=== PATIENT | female | born 1965 | race Caucasian/White ===

== ENCOUNTER 2017-06-10 11:09 | Emergency (ER) | payer OTHER ==
--- NOTE | 2017-06-10 12:34 | RAD REPORT ---
EXAM DESCRIPTION: RAD - Chest Pa And Lat (2 Views) - 06/10/2017 12:23 pm CLINICAL HISTORY: Fever and cough COMPARISON: None. TECHNIQUE: PA and lateral views of the chest were obtained. FINDINGS: The lungs are hyperexpanded compatible with COPD. The heart is upper limit of normal in si ze. No fracture or aggressive bony process. IMPRESSION: COPD without acute process identified.
--- NOTE | 2017-06-10 13:10 | ER ---
Nurse's Notes [facility] Name: Piper Mai Age: 51 yrs Sex: Female : 1965 Arrival Date: 06/10/2017 Time: 11:11 Bed 11 Private MD: Diagnosis: Chronic obstructive pulmonary disease, unspecified;Cough Presentation: 06/10 11:29 Presenting complaint: Patient states: body aches and productive cough with green sputum ss x 3 days. Transition of care: patient was not received from another setting of care. Onset of symptoms was June 07, 2017. Care prior to arrival: None. 11:29 Method Of Arrival: Ambulatory ss 11:29 Acuity: GALILEO 4 ss Historical: - Allergies: : No Known Allergies; ss - Home Meds: : None [Active]; ss - PMHx: : None; ss - PSHx: :31 hip repair; back sx; Cholecystectomy; Appendectomy; Hysterectomy; ss - Immunization history:: Adult Immunizations up to date. - Social history:: Smoking status: Patient uses tobacco products, smokes one-half pack cigarettes per day. Screenin:41 Abuse screen: Denies threats or abuse. Denies injuries from another. Nutritional ss screening: No deficits noted. Tuberculosis screening: No symptoms or risk factors identified. Never had TB. Fall Risk None identified. Assessment: 11:35 General: Appears uncomfortable, Behavior is calm, cooperative, Reports feeling ill for ss 2-3 days, Denies fever. Pain: Complains of pain in general body aches Pain currently is 8 out of 10 on a pain scale. Quality of pain is described as aching, Pain began 3 days ago Is continuous. Neuro: Level of Consciousness is awake, alert, obeys commands. Cardiovascular: Capillary refill < 3 seconds is brisk in bilateral fingers. Respiratory: Airway is patent Respiratory effort is even, unlabored, Respiratory pattern is regular, symmetrical. Respiratory: Reports cough that is productive, x 3 days. Green sputum. GI: Patient currently denies abdominal pain, diarrhea, nausea, vomiting. Derm: Skin is intact, is healthy with good turgor, Skin is dry, Skin is pink, warm \T\ dry. normal. Musculoskeletal: Circulation, motion, and sensation intact. Range of motion: intact in all extremities, Swelling absent. 12:41 Reassessment: Patient appears in no apparent distress at this time. Patient and/or ss family updated on plan of care and expected duration. Pain level reassessed. Patient is alert, oriented x 3, equal unlabored respirations, skin warm/dry/pink. awaiting flu test results. ammonia refrigeration technician reports that it will be an additional 5-6 minutes. Vital Signs: 11:31 BP 109 / 79; Pulse 85; Resp 16; Temp 98.0(O); Pulse Ox 97% on R/A; Weight 78.02 kg; ss Height 5 ft. 7 in. (170.18 cm); Pain 8/10; 11:31 Body Mass Index 26.94 (78.02 kg, 170.18 cm) ED Course: 11:11 Patient arrived in ED. as 11:30 Triage completed. ss 11:30 [facility]autista [facility]C [facility] kb 11:30 Yasmany Bojorquez MD is Attending Physician. kb 11:31 Arm band placed on right wrist. ss 12:16 Patient moved to radiology via wheelchair. 1 12:21 X-ray completed. Patient tolerated procedure well. Patient moved back from radiology. 1 12:22 Chest Pa And Lat (2 Views) XRAY In Process Unspecified. EDMS 12:41 Yoselin Park, SHAAN is Primary Nurse. ss 12:41 Patient has correct armband on for positive identification. Call light in reach. ss 13:15 No provider procedures requiring assistance completed. Patient did not have IV access ss during this emergency room visit. Administered Medications: No medications were administered Outcome: 13:08 Discharge ordered by MD. kb 13:15 Discharged to home ambulatory, with family. ss 13:15 Condition: good 13:15 Discharge instructions given to patient, family, Instructed on discharge instructions, follow up and referral plans. medication usage, Demonstrated understanding of instructions, follow-up care, medications, Prescriptions given X 1. 13:15 Patient left the ED. Signatures: Dispatcher [employer] EDMS Florina Bautista FNP-C FNP-Julisa Gracia 1 Samira Berry as Yoselin Park, RN RN
--- NOTE | 2017-06-10 13:10 | EDPHYS ---
Physician Documentation [facility] Name: Piper Mai Age: 51 yrs Sex: Female : 1965 Arrival Date: 06/10/2017 Time: 11:11 Bed 11 Private MD: ED Physician Yasmany Bojorquez HPI: 06/10 13:06 This 51 yrs old Female presents to ER via Ambulatory with complaints of Flu kb Symptoms. 13:06 The patient or guardian reports cough, that is intermittent, described as mild, kb described as moderate, with no sputum. Onset: The symptoms/episode began/occurred 3 day(s) ago. Severity of symptoms: At their worst the symptoms were mild, moderate, in the emergency department the symptoms are unchanged. Modifying factors: The symptoms are alleviated by nothing, the symptoms are aggravated by nothing. Associated signs and symptoms: Pertinent positives: fever, Pertinent negatives: chest pain, diarrhea, ear ache, nausea, rhinorrhea, sore throat, vomiting. The patient has not experienced similar symptoms in the past. The patient has not recently seen a physician. Historical: - Allergies: 11: No Known Allergies; ss - Home Meds: : None [Active]; ss - PMHx: : None; ss - PSHx: 11:31 hip repair; back sx; Cholecystectomy; Appendectomy; Hysterectomy; ss - Immunization history:: Adult Immunizations up to date. - Social history:: Smoking status: Patient uses tobacco products, smokes one-half pack cigarettes per day. ROS: 13:05 ENT: Negative for injury, pain, and discharge, Neck: Negative for injury, pain, and kb swelling, Cardiovascular: Negative for chest pain, palpitations, and edema, Abdomen/GI: Negative for abdominal pain, nausea, vomiting, diarrhea, and constipation, Back: Negative for injury and pain, : Negative for injury, bleeding, discharge, and swelling, MS/Extremity: Negative for injury and deformity, Skin: Negative for injury, rash, and discoloration, Neuro: Negative for headache, weakness, numbness, tingling, and seizure. 13:05 Constitutional: Positive for fever, Negative for body aches, chills, fatigue, malaise, poor PO intake, weight loss. 13:05 Respiratory: Positive for cough, with no reported sputum, Negative for dyspnea on exertion, hemoptysis, orthopnea, pleurisy, shortness of breath, sputum production, wheezing. Exam: 13:05 Constitutional: This is a well developed, well nourished patient who is awake, alert, kb and in no acute distress. Head/Face: Normocephalic, atraumatic. ENT: Nares patent. No nasal discharge, no septal abnormalities noted. Tympanic membranes are normal and external auditory canals are clear. Oropharynx with no redness, swelling, or masses, exudates, or evidence of obstruction, uvula midline. Mucous membranes moist. Neck: Trachea midline, no thyromegaly or masses palpated, and no cervical lymphadenopathy. Supple, full range of motion without nuchal rigidity, or vertebral point tenderness. No Meningismus. Chest/axilla: Normal chest wall appearance and motion. Nontender with no deformity. No lesions are appreciated. Cardiovascular: Regular rate and rhythm with a normal S1 and S2. No gallops, murmurs, or rubs. Normal PMI, no JVD. No pulse deficits. Respiratory: Lungs have equal breath sounds bilaterally, clear to auscultation and percussion. No rales, rhonchi or wheezes noted. No increased work of breathing, no retractions or nasal flaring. Abdomen/GI: Soft, non-tender, with normal bowel sounds. No distension or tympany. No guarding or rebound. No evidence of tenderness throughout. Skin: Warm, dry with normal turgor. Normal color with no rashes, no lesions, and no evidence of cellulitis. MS/ Extremity: Pulses equal, no cyanosis. Neurovascular intact. Full, normal range of motion. Neuro: Awake and alert, GCS 15, oriented to person, place, time, and situation. Cranial nerves II-XII grossly intact. Motor strength 5/5 in all extremities. Sensory grossly intact. Cerebellar exam normal. Normal gait. Vital Signs: 11:31 BP 109 / 79; Pulse 85; Resp 16; Temp 98.0(O); Pulse Ox 97% on R/A; Weight 78.02 kg; ss Height 5 ft. 7 in. (170.18 cm); Pain 8/10; 11:31 Body Mass Index 26.94 (78.02 kg, 170.18 cm) ss MDM: 11:35 Patient medically screened. kb 13:05 Data reviewed: vital signs, nurses notes. Data interpreted: Pulse oximetry: on room air kb is 97 %. Interpretation: normal. Counseling: I had a detailed discussion with the patient and/or guardian regarding: the historical points, exam findings, and any diagnostic results supporting the discharge/admit diagnosis, lab results, radiology results, the need for outpatient follow up, a family practitioner, to return to the emergency department if symptoms worsen or persist or if there are any questions or concerns that arise at home. 06/10 11:30 Order name: Flu kb 06/10 11:31 Order name: Influenza Screen (A ; Complete Time: 12:53 EDMS 06/10 11:30 Order name: Chest Pa And Lat (2 Views) XRAY; Complete Time: 12:37 kb Administered Medications: No medications were administered Disposition: 14:44 Co-signature as Attending Physician, Yasmany Bojorquez MD. Disposition: 06/10/17 13:08 Discharged to Home. Impression: Chronic obstructive pulmonary disease, unspecified, Cough. - Condition is Stable. - Discharge Instructions: Chronic Obstructive Pulmonary Disease, Cough, Adult, [id number]. - Prescriptions for Prednisone 20 mg Oral Tablet - take 1 tablet by ORAL route once daily for 5 days; 5 tablet. - Medication Reconciliation Form, Thank You Letter, Antibiotic Education, Prescription Opioid Use form. - Follow up: Emergency Department; When: As needed; Reason: Worsening of condition. Follow up: Private Physician; When: 2 - 3 days; Reason: Recheck today's complaints, Continuance of care, Re-evaluation by your physician. Signatures: Dispatcher [employer] [facility] Florina Bautista, RHIANNA MARTIN-Yoselin Engle, Yasmany Ferreira RN, MD MD
== END 2017-06-10 13:15 | disposition home or self-care (01) ==
LOC: ER 11:09
DX: J44.9 Chronic obstructive pulmonary disease, unspecified (principal)
CPT/HCPCS: 71046; 87804; 99283

== ENCOUNTER 2017-07-22 09:13 | Emergency (ER) | payer OTHER ==
[2017-07-22] MEDS ORDERED: predniSONE 20 MG TAB ONE (09:41)
[2017-07-22] MEDS ORDERED: IPRATROPIUM BROM 0.5MG/2.5ML ONE (09:41)
[2017-07-22] MEDS ORDERED: ALBUTEROL 2.5 MG/3 ML NEB SOL ONE (09:41)
[2017-07-22 09:56] LABS: Absolute Lymphocytes (CBC) 2.5 K/uL (0.7-4.9); Absolute Monocytes 0.6 K/uL (0.1-1.3); Absolute Neutrophil 7.8 K/uL (1.8-8.0); Basophils % 0.6 % (0-1.3); Eosinophils % 1.7 % (0-4.4); Hematocrit 46.5 % (36.0-45.0); Lymphocytes % 22.2 % (15.3-44.8); MCH 29.5 pg (27.0-35.0); MCV 89.3 fL (80-100); MPV 8.7 fL (7.6-11.3); Monocytes % 5.7 % (3.3-12.3); RBC Red Blood Cell Count 5.21 M/uL (3.86-4.86)
[2017-07-22 10:03] LABS: Urine Blood 2+ (NEG); Urine Glucose NEGATIVE (NEG); Urine Protein NEGATIVE (NEG); Urine pH 5.5 (5.0-7.0)
[2017-07-22 10:10] LABS: Protime INR 0.97
--- NOTE | 2017-07-22 10:13 | RAD REPORT ---
EXAM DESCRIPTION: RAD - Chest Single View - 07/22/2017 9:57 am CLINICAL HISTORY: Chest pain. COMPARISON: 06/10/2017 FINDINGS: Portable technique limits examination quality. The lungs are mildly emphysematous but grossly clear. The heart is normal in size. No displaced fract ures. IMPRESSION: COPD.
[2017-07-22 10:30] LABS: Potassium 4.2 mEq/L (3.6-5.0)
[2017-07-22 10:36] LABS: Albumin 4.2 g/dL (3.2-5.5); Bilirubin Direct 0.1 mg/dL (0-0.2); Bilirubin Total 0.6 mg/dL (0.3-1.2); CKMB Creatine Kinase MB 1.7 ng/ml (0.3-4.0); Magnesium 2.2 mg/dL (1.8-2.5)
[2017-07-22] MEDS ORDERED: KETOROLAC 30 MG/ML INJ ONE (11:54)
[2017-07-22] MEDS ORDERED: CYCLOBENZAPRINE 10 MG TAB ONE (11:54)
[2017-07-22] MEDS ORDERED: MORPHINE 4 MG/ML SYR ONE (12:31)
[2017-07-22] MEDS ORDERED: ONDANSETRON 4 MG/2 ML VIAL ONE (12:31)
--- NOTE | 2017-07-22 12:53 | ER ---
Nurse's Notes [facility] Name: Piper Mai Age: 52 yrs Sex: Female : 1965 Arrival Date: 07/22/2017 Time: 09:14 Bed 6 Private MD: Diagnosis: Chronic obstructive pulmonary disease with (acute) exacerbation Presentation: 07/22 09:25 Presenting complaint: Patient states: Left sided chest pain, productive cough with hb white sputum, pain with cough, SOB, and fever x 3 days. TMAX 102. Hx COPD, anxiety. Transition of care: patient was not received from another setting of care. Onset of symptoms is unknown. 09:25 Method Of Arrival: Ambulatory hb 09:25 Acuity: GALILEO 2 hb 09:30 Initial Sepsis Screen: Does the patient meet any 2 criteria? Yes Does the patient have hb a suspected source of infection? No. Patient's initial sepsis screen is negative. Care prior to arrival: None. Historical: - Allergies: :23 No Known Allergies; sg - PMHx: 09:23 COPD; sg - PSHx: 09:23 hip repair; back sx; Cholecystectomy; Appendectomy; Hysterectomy; sg - Immunization history:: Adult Immunizations unknown. - Social history:: Smoking status: . Screenin:30 Abuse screen: Denies threats or abuse. Denies injuries from another. hb 09:30 Nutritional screening: No deficits noted. Tuberculosis screening: No symptoms or risk hb factors identified. Fall Risk None identified. Assessment: 09:21 General: Appears distressed, ill, Behavior is cooperative, anxious. Pain: Pain hb currently is 6 out of 10 on a pain scale. Neuro: Level of Consciousness is awake, alert, obeys commands, Oriented to person, place, time, situation. Cardiovascular: Heart tones S1 S2 present Capillary refill < 3 seconds Patient's skin is warm and dry. Respiratory: Airway is patent Trachea midline Respiratory effort is labored, Respiratory pattern is tachypnea Breath sounds are coarse bilaterally. Parent/caregiver reports the patient having shortness of breath at rest cough that is productive, persistent pain with cough. GI: No signs and/or symptoms were reported involving the gastrointestinal system. : No signs and/or symptoms were reported regarding the genitourinary system. EENT: No signs and/or symptoms were reported regarding the EENT system. Derm: No signs and/or symptoms reported regarding the dermatologic system. Skin is intact, is healthy with good turgor, Skin is pink, warm \T\ dry. Musculoskeletal: No signs and/or symptoms reported regarding the musculoskeletal system. 10:15 Reassessment: Patient appears in no apparent distress at this time. Patient and/or hb family updated on plan of care and expected duration. Pain level reassessed. Patient is alert, oriented x 3, equal unlabored respirations, skin warm/dry/pink. 11:15 Reassessment: Patient and/or family updated on plan of care and expected duration. Pain hb level reassessed. Pt c/o left sided chest pain 8/10, requesting pain medication. MO Alicia notified, no new orders at this time. 13:15 Reassessment: Pt actively vomiting, MO Alicia notified , Phenergan administered as hb ordered. 14:15 Reassessment: Patient appears in no apparent distress at this time. Patient and/or hb family updated on plan of care and expected duration. Pain level reassessed. Patient is alert, oriented x 3, equal unlabored respirations, skin warm/dry/pink. Patient states feeling better. Patient states symptoms have improved. Vital Signs: 09:26 BP 104 / 74; Pulse 91; Resp 22; Temp 97.9; Pulse Ox 98% on R/A; Pain 5/10; hb 10:30 BP 155 / 77; Pulse 105; Resp 20; Pulse Ox 97% on R/A; hb 11:23 BP 116 / 75; Pulse 102; Resp 22; Pulse Ox 94% on R/A; Pain 8/10; hb 13:16 BP 101 / 72; Pulse 88; Resp 20; Pulse Ox 97% on R/A; Pain 2/10; hb 14:19 BP 108 / 68; Pulse 84; Resp 18; Pulse Ox 98% on R/A; Pain 2/10; hb ED Course: 09:14 Patient arrived in ED. sb2 09:21 Ravin Huang NP is PHCP. pm1 09:21 Jose Rivera MD is Attending Physician. pm1 09:23 Arm band placed on. sg 09:25 Destinee Donato, RN is Primary Nurse. hb 09:26 Triage completed. hb 09:30 Patient has correct armband on for positive identification. Placed in gown. Bed in low hb position. Call light in reach. Side rails up X 1. site monitor on. Pulse ox on. NIBP on. 09:30 Inserted saline lock: 20 gauge in right antecubital area, using aseptic technique. hb Blood collected. by Chris. 09:55 X-ray completed. Portable x-ray completed in exam room. Patient tolerated procedure sw well. 09:58 XRAY Chest (1 view) In Process Unspecified. EDMS 10:35 EKG done, by production line technician. reviewed by Jose Rivera MD. dt2 14:20 No provider procedures requiring assistance completed. IV discontinued, intact, hb bleeding controlled, No redness/swelling at site. Pressure dressing applied. Administered Medications: 09:44 Drug: predniSONE 60 mg Route: PO; hb 09:44 Drug: Albuterol - atroVENT (3:1) (2.5 mg - 0.5 mg) 3 ml Route: Nebulizer; hb 11:56 Drug: TORadol 30 mg Route: IVP; Site: right wrist; hb 11:57 Drug: Flexeril 10 mg Route: PO; hb 12:33 Drug: morphine 4 mg Route: IVP; Site: right wrist; hb 12:33 Drug: Zofran 4 mg Route: IVP; Site: right wrist; hb 13:14 Drug: Rocephin 1 grams Route: IV; Rate: calculated rate; Site: right antecubital; hb 13:15 Drug: Phenergan 12.5 mg Route: IVP; Site: right antecubital; hb Outcome: 12:53 Discharge ordered by MD. pm1 14:20 Discharged to home ambulatory, with family. hb 14:20 Condition: stable 14:20 Discharge instructions given to patient, Instructed on discharge instructions, follow up and referral plans. medication usage, Demonstrated understanding of instructions, follow-up care, medications, Prescriptions given X 4. 14:21 Patient left the ED. hb Signatures: Dispatcher [employer] EDMS Aly Chowdhury RN RN sg Warren, Shannon sw Marinas, Patrick, NP [employer] pm1 Destinee Donato RN RN hb Billeau, Sheri sb2 Kathy Moscoso dt2
--- NOTE | 2017-07-22 12:53 | EDPHYS ---
Physician Documentation [facility] Name: Piper Mai Age: 52 yrs Sex: Female : 1965 Arrival Date: 07/22/2017 Time: 09:14 Bed 6 Private MD: ED Physician Jose Rivera HPI: 07/22 10:00 This 52 yrs old Female presents to ER via Ambulatory with complaints of COPD pm1 Exacerbation. 10:00 The patient or guardian reports cough, shortness of breath. Onset: The symptoms/episode pm1 began/occurred 1 week(s) ago. Severity of symptoms: in the emergency department the symptoms are unchanged. Modifying factors: The symptoms are alleviated by nothing, the symptoms are aggravated by nothing. Associated signs and symptoms: Pertinent positives: chest pain, with cough, fever, Pertinent negatives: nausea, sore throat, vomiting. The patient has experienced similar episodes in the past, multiple times. The patient has been recently seen at the [facility] Emergency Department, last week, for similar complaints. Patient ran out of her inhaler therapy for her COPD. Patient continues to smoke. Historical: - Allergies: 09:23 No Known Allergies; sg - PMHx: 09:23 COPD; sg - PSHx: 09:23 hip repair; back sx; Cholecystectomy; Appendectomy; Hysterectomy; sg - Immunization history:: Adult Immunizations unknown. - Social history:: Smoking status: . ROS: 10:00 Eyes: Negative for injury, pain, redness, and discharge, ENT: Negative for injury, pm1 pain, and discharge, Neck: Negative for injury, pain, and swelling. 10:00 Abdomen/GI: Negative for abdominal pain, nausea, vomiting, diarrhea, and constipation, Back: Negative for injury and pain, : Negative for injury, bleeding, discharge, and swelling, MS/Extremity: Negative for injury and deformity, Skin: Negative for injury, rash, and discoloration, Neuro: Negative for headache, weakness, numbness, tingling, and seizure. 10:00 Constitutional: Positive for fever, Negative for body aches, chills, poor PO intake. 10:00 Cardiovascular: Positive for chest pain, with cough. 10:00 Respiratory: Positive for cough, shortness of breath. Exam: 10:00 Constitutional: This is a well developed, well nourished patient who is awake, alert, pm1 and in no acute distress. Head/Face: Normocephalic, atraumatic. Eyes: Pupils equal round and reactive to light, extra-ocular motions intact. Lids and lashes normal. Conjunctiva and sclera are non-icteric and not injected. Cornea within normal limits. Periorbital areas with no swelling, redness, or edema. ENT: Nares patent. No nasal discharge, no septal abnormalities noted. Tympanic membranes are normal and external auditory canals are clear. Oropharynx with no redness, swelling, or masses, exudates, or evidence of obstruction, uvula midline. Mucous membranes moist. Neck: Trachea midline, no thyromegaly or masses palpated, and no cervical lymphadenopathy. Supple, full range of motion without nuchal rigidity, or vertebral point tenderness. No Meningismus. 10:00 Cardiovascular: Regular rate and rhythm with a normal S1 and S2. No gallops, murmurs, or rubs. Normal PMI, no JVD. No pulse deficits. Respiratory: Lungs have equal breath sounds bilaterally, clear to auscultation and percussion. No rales, rhonchi or wheezes noted. No increased work of breathing, no retractions or nasal flaring. Abdomen/GI: Soft, non-tender, with normal bowel sounds. No distension or tympany. No guarding or rebound. No evidence of tenderness throughout. Back: No spinal tenderness. No costovertebral tenderness. Full range of motion. Skin: Warm, dry with normal turgor. Normal color with no rashes, no lesions, and no evidence of cellulitis. MS/ Extremity: Pulses equal, no cyanosis. Neurovascular intact. Full, normal range of motion. 10:00 Chest/axilla: Inspection: normal, Palpation: tenderness, of the Left anterior lower ribs below left breast, that totally reproduces the patient's complaints. 10:00 Neuro: Orientation: is normal, Mentation: is normal, Motor: is normal, moves all fours, Sensation: is normal, no obvious gross deficits, Gait: is steady. Vital Signs: 09:26 BP 104 / 74; Pulse 91; Resp 22; Temp 97.9; Pulse Ox 98% on R/A; Pain 5/10; hb 10:30 BP 155 / 77; Pulse 105; Resp 20; Pulse Ox 97% on R/A; hb 11:23 BP 116 / 75; Pulse 102; Resp 22; Pulse Ox 94% on R/A; Pain 8/10; hb 13:16 BP 101 / 72; Pulse 88; Resp 20; Pulse Ox 97% on R/A; Pain 2/10; hb 14:19 BP 108 / 68; Pulse 84; Resp 18; Pulse Ox 98% on R/A; Pain 2/10; hb MDM: 09:21 Patient medically screened. pm1 12:29 Data reviewed: vital signs. 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 07/22 09:36 Order name: Basic Metabolic Panel; Complete Time: 10:42 pm07/22 09:36 Order name: BNP; Complete Time: 10:42 pm07/22 09:36 Order name: CBC with Diff; Complete Time: 10:33 pm07/22 09:36 Order name: Ckmb; Complete Time: 10:42 pm07/22 09:36 Order name: CPK; Complete Time: 10:42 pm07/22 09:36 Order name: LFT's; Complete Time: 10:42 pm07/22 09:36 Order name: Magnesium; Complete Time: 10:42 pm07/22 09:36 Order name: PT-INR; Complete Time: 10:33 pm07/22 09:36 Order name: Ptt, Activated; Complete Time: 10:33 pm07/22 09:36 Order name: Troponin (emerg Dept Use Only); Complete Time: 11:42 pm07/22 09:36 Order name: Blood Culture Adult (2) pm1 07/22 09:36 Order name: Flu; Complete Time: 10:33 pm07/22 09:36 Order name: Procalcitonin; Complete Time: 11:42 pm07/22 09:36 Order name: Lactate; Complete Time: 11:42 pm07/22 09:36 Order name: Urine Test (obtain specimen); Complete Time: 10:02 pm1 07/22 09:36 Order name: XRAY Chest (1 view); Complete Time: 10:33 pm1 07/22 09:36 Order name: EKG; Complete Time: 09:37 pm1 07/22 09:36 Order name: Cardiac monitoring; Complete Time: 09:38 pm1 07/22 09:36 Order name: EKG - Nurse/Tech; Complete Time: 10:02 pm1 07/22 09:36 Order name: IV Saline Lock; Complete Time: 09:38 pm07/22 09:36 Order name: Labs collected and sent; Complete Time: 09:38 pm07/22 09:56 Order name: Urine Dipstick--Ancillary (enter results); Complete Time: 10:33 bd 07/22 09:36 Order name: O2 Per Protocol; Complete Time: 09:38 pm1 07/22 09:36 Order name: O2 Sat Monitoring; Complete Time: 09:39 pm1 07/22 09:36 Order name: Urine Dipstick-Ancillary (obtain specimen); Complete Time: 10:02 pm07/22 10:09 Order name: Labs - recollect needed; Complete Time: 11:27 bd Administered Medications: 09:44 Drug: predniSONE 60 mg Route: PO; hb 09:44 Drug: Albuterol - atroVENT (3:1) (2.5 mg - 0.5 mg) 3 ml Route: Nebulizer; hb 11:56 Drug: TORadol 30 mg Route: IVP; Site: right wrist; hb 11:57 Drug: Flexeril 10 mg Route: PO; hb 12:33 Drug: morphine 4 mg Route: IVP; Site: right wrist; hb 12:33 Drug: Zofran 4 mg Route: IVP; Site: right wrist; hb 13:14 Drug: Rocephin 1 grams Route: IV; Rate: calculated rate; Site: right antecubital; hb 13:15 Drug: Phenergan 12.5 mg Route: IVP; Site: right antecubital; hb Disposition: 15:28 Co-signature as Attending Physician, Jose DOMINGUEZ I agree with the assessment and ace plan of care. Disposition: 07/22/17 12:53 Discharged to Home. Impression: Chronic obstructive pulmonary disease with (acute) exacerbation. - Condition is Stable. - Discharge Instructions: Chronic Obstructive Pulmonary Disease, How to Use an Inhaler. - Prescriptions for Prednisone 20 mg Oral Tablet - take 3 tablet by ORAL route once daily for 5 days; 15 tablet. Tylenol- Codeine #3 300-30 mg Oral Tablet - take 2 tablets by ORAL route every 6 hours As needed; 20 tablet. Zithromax Z- Randal 250 mg Oral Tablet - take 1 tablet by ORAL route as directed for 5 days Day 1 - take two (2) tablets one time. Day 2, 3, 4 , 5 take one (1) tablet once daily.; 6 tablet. Albuterol Sulfate 90 mcg/actuation - inhale 1-2 puff by INHALATION route every 4-6 hours; 1 Inhaler. - Medication Reconciliation Form, Thank You Letter, Antibiotic Education, Prescription Opioid Use form. - Follow up: Emergency Department; When: As needed; Reason: Worsening of condition. Follow up: Private Physician; When: 2 - 3 days; Reason: Recheck today's complaints, Continuance of care, Re-evaluation by your physician. - Problem is new. - Symptoms have improved. Signatures: Dispatcher [employer] EDMS Savanah Ferrera Steven, RN RN sg Anderson, Corey, MD MD cha Marinas, Patrick, NP INTERIOR SPECIALIST pm1 Destinee Donato RN RN hb Corrections: (The following items were deleted from the chart) 14:21 12:53 07/22/2017 12:53 Discharged to Home. Impression: Chronic obstructive pulmonary hb disease with (acute) exacerbation. Condition is Stable. Forms are Medication Reconciliation Form, Thank You Letter, Antibiotic Education, Prescription Opioid Use. Follow up: Emergency Department; When: As needed; Reason: Worsening of condition. Follow up: Private Physician; When: 2 - 3 days; Reason: Recheck today's complaints, Continuance of care, Re-evaluation by your physician. Problem is new. Symptoms have improved. pm1
[2017-07-22] MEDS ORDERED: CEFTRIAXONE/SWI 1gm 1 GM/10 ML SYR ONE (13:09)
[2017-07-22] MEDS ORDERED: PROMETHAZINE 25 MG/ML VIAL ONE (13:11)
--- NOTE | 2017-07-23 10:32 | EKG ---
Test Date: 2017-07-22 Test Time: 10:21:41 Nylon Mender: ERASMO MEASUREMENT RESULTS: Intervals: Rate: 95 CO: 142 QRSD: 78 QT: 356 QTc: 447 [place]: P: 44 CO: 142 QRS: 44 T: 65 INTERPRETIVE STATEMENTS: Normal sinus rhythm Nonspecific ST and T wave abnormality Abnormal ECG No previous ECG available for comparison Electronically Signed On 07-23-17 10:27:37 CDT by Amadou Saldivar
== END 2017-07-22 14:21 | disposition home or self-care (01) ==
LOC: ER 09:13
DX: J44.1 Chronic obstructive pulmonary disease with (acute) exacerbation (principal); Z72.0 Tobacco use
CPT/HCPCS: 36415; 71045; 80048; 80076; 81003; 82550; 82553; 83605; 83735; 83880; 84145; 84484; 85025; 85610; 85730; 87040 ×2; 87205; 87804 ×2; 93005; 94640; 99285; J0696; J2405; J2550; J7512